=== PATIENT | male | born 1960 | race Caucasian/White ===

== ENCOUNTER → 2019-09-30 | Outpatient (CLI) | payer OTHER ==
--- NOTE | 2019-09-30 14:47 | KCIC ---
EXAM: ABDOMEN ONE VIEW. HISTORY: Abdominal pain. COMPARISON: None. FINDINGS: A frontal view of the abdomen is obtained. There are no distended small bowel loops. There is gas distally. IMPRESSION: 1. No evidence of obstruction. Electronically signed by: Romeo Sanders MD (09/30/2019 2:45 PM) [id number]
== END | disposition home or self-care (01) ==
LOC: KCIC 10:34
PROVIDERS: ATTEND Nurse Practitioner Gerontology
DX: R14.3 Flatulence (principal); R10.84 Generalized abdominal pain
CPT/HCPCS: 74018